=== PATIENT | female | born 1965 | race Caucasian/White ===

== ENCOUNTER → 2016-12-08 | Outpatient (CLI) | payer MEDICAID, MEDICARE ==
[~2016-12-08] MED LIST: AMIT75TA37 PO; ASPI-611 PO; FISH1CAP29 PO; FURO40TA70 PO; LOVA10TA45 PO; METF-200 PO; METO-107 PO; POTA10TA93 PO; RANI-45 PO; SERT-88 PO
== END ==
LOC: WC.BC 08:50
DX: Z12.31 Encounter for screening mammogram for malignant neoplasm of breast (principal); N64.59 Other signs and symptoms in breast
CPT/HCPCS: 77063; G0202